=== PATIENT | female | born 1960 | race Caucasian/White ===

== ENCOUNTER → 2021-07-26 | Outpatient (CLI) | payer OTHER, SELFPAY ==
--- NOTE | 2021-07-26 14:00 | FLU_PTH ---
PATIENT: KELLY HOUSER LOC: [facility] U#:[id number] AGE/SX: 60/F ROOM: RE07/26/[address]: Dr. Iain Etienne MD : 1960 BED: DIS: 07/26/2021 SPEC #: [id number] RECD: 07/26/21 15:30 STATUS: DOMITILA REClaude #: [id number] SHARLA: 07/26/21 14:[address]: Iain Etienne DEPT: CYTOLOGY RECD BY: Kathleen Roland ENTERED: 07/27/21 08:06 SP TYPE: Fluid OTHR DR: Dr. Alf Pat MD Tissues: A - Thyroid gland, NOS B - Thyroid gland, NOS C - Thyroid gland, NOS D - Thyroid gland, NOS Procedures: Special Stain Group II Surgery Specimen Level IV Cytospin Fluid Cytology Other HEADER OPERATION: Ultrasound-guided fine needle aspiration bilateral thyroid nodules PRE-OP DIAGNOSIS: Multiple thyroid nodules TISSUE SUBMITTED: A ? Right lower pole thyroid nodule fluid, B ? Right lower pole thyroid nodule x4 smears, C ? Left thyroid nodule fluid, D ? Left thyroid nodule x4 smears DIAGNOSIS CYTOLOGY A. Fine needle aspiration, right lower pole thyroid nodule fluid (cytospin and cell block): Rare atypical follicular cells of undetermined significance (Dalton category III). B. Fine needle aspiration, right lower pole thyroid nodule (smears): Rare atypical follicular cells of undetermined significance (Dalton category III). C. 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 D. 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 AM:meghna 07/28/2021 COMMENT Case has been reviewed in consultation with Dr. Simon who concurs with the above diagnosis. IDC:SJ CYTOLOGY STUDY Slides are reviewed. CYTOLOGY GROSS A - Received is 20 ml of red cloudy fluid labeled with the patient's name and and designated per the requisition as right lower pole thyroid nodule. Submitted for cytology preparation including cell block. B - Received are four smears labeled with the patient's name and designated per the requisition as right lower pole thyroid nodule. Submitted for staining. C - Received is 15 ml of red cloudy fluid labeled with the patient's name and and designated per the requisition as left thyroid nodule. Submitted for cytology preparation including cell block. D - Received are four smears labeled with the patient's name and designated per the requisition as left thyroid. Submitted for staining. / meghna 07/27/2021 TC:? CPT: 51071 x2, 63285 x4
== END | disposition home or self-care (01) ==
PROVIDERS: PCP Family Medicine; Visit Provider Surgery
DX: E04.2 Nontoxic multinodular goiter (principal)
CPT/HCPCS: 88108; 88161; 88305; 88313

== ENCOUNTER 2021-09-01 12:18 | Observation (INO) | payer OTHER, SELFPAY ==
[2021-09-01] VITALS (12 sets, daily range): BP systolic 116–149; BP diastolic 61–100; PULSE 52–69; RESP 14–18; TEMP 36.1–37; O2SAT 94–100; BMI 28.7
--- NOTE | 2021-09-01 | IMM_PTH ---
PATIENT: KELLY HOUSER LOC: [facility] U#:[id number] AGE/SX: 60/F [place] [facility] [place] RE09/01/[address]: Dr. Iain Etienne MD : 1960 BED: 1 DIS: 09/02/2021 SPEC #: [id number] RECD: 09/03/21 10:49 STATUS: DOMITILA HARRINGTON #: [id number] SHARLA: 09/01/21 00:[address]: Iain Etienne DEPT: IMMUNOHISTOCHEMISTRY RECD BY: Lona Quinn ENTERED: 09/03/21 10:51 SP TYPE: IMMUNO OTHR DR: Dr. Alf Pat MD Tissues: B - Thyroid gland, NOS Procedures: HBME (initial) CD56 (add) CK19 (add) GAL-3 (add) HBME (add) PHYSICIAN & INSTITUTION [place] [id number] SPECIMEN INFORMATION: Tissue Source: B ? Thyroid, total thyroidectomy Clinical Info: Multiple thyroid nodules Specimen Number: [id number] B2, B10 & B13 CPT code: 48169, 06314 x11 METHODOLOGY: Deparaffinized sections of prefer/formalin-fixed tissue or PAP/DQ stained slides are incubated with monoclonal/polyclonal antibodies/oligonucleotide probes. Localization is made via biotin free immunoperoxidase method. Appropriate controls are performed and reacted as expected. Results on target cell population are indicated in the following table: RESULTS: ANTIBODY / CLONE RESULT Block B2 HBME1 (HBME-1) negative CK19 (A53-B/A2.26) positive GAL3 (9C4) negative CD56 (123C3.D5) negative Block B10 HBME1 (HBME-1) positive CK19 (A53-B/A2.26) positive GAL3 (9C4) positive CD56 (123C3.D5) negative Block B13 HBME1 (HBME-1) negative CK19 (A53-B/A2.26) positive GAL3 (9C4) negative CD56 (123C3.D5) negative These tests were developed and their performance characteristics determined by [facility]. They may not have been cleared or approved by the U.S. Food and Drug Administration. The FDA has determined that such clearance or approval is not necessary. The above immunohistochemical/dualISH markers are ordered and reviewed by the Pathologist. INTERPRETATION: B. Thyroid, total thyroidectomy: Incidental papillary thyroid carcinoma (block 10). Follicular adenomas (block 2 & 3). SJ:meghna 09/06/2021 Case has been reviewed in consultation with Dr. Acuña who concurs with the above diagnosis. IDC:AM
--- NOTE | 2021-09-01 | THYROID_PTH ---
PATIENT: KELLY HOUSER LOC: [facility] U#:[id number] AGE/SX: 60/F [place] [facility]/01/[address]: Dr. Iain Etienne MD : 1960 BED: 1 DIS: 09/02/2021 SPEC #: [id number] RECD: 09/01/21 10:42 STATUS: DOMITILA HARRINGTON #: [id number] SHARLA: 09/01/21 00:[address]: Iain Etienne DEPT: SURGICAL PATHOLOGY RECD BY: Lona Quinn ENTERED: 09/01/21 12:10 SP TYPE: THYROID OTHR DR: Dr. Alf Pat MD Tissues: A - Parathyroid B - Thyroid gland, NOS Procedures: Frozen Section (charge) Surgery Specimen Level IV Surgery Specimen Level V HEADER OPERATION: Total thyroidectomy with intraoperative nerve monitoring PRE-OP DIAGNOSIS: Multiple thyroid nodules TISSUE SUBMITTED: A ? Right superior parathyroid, FS, B ? Thyroid, stitch [place] right superior pole FROZEN SECTION DIAGNOSIS A. Right superior parathyroid, biopsy: Parathyroid tissue. AM:meghna 09/01/2021 Case has been reviewed in consultation with Dr. Simon who concurs with the above diagnosis. IDC:PAYAM MICROSCOPIC DIAGNOSIS A. Right superior parathyroid, biopsy: Parathyroid tissue with cautery artifact. B. Thyroid, total thyroidectomy: Incidental papillary thyroid carcinoma, follicular variant, left lobe. Follicular adenomas. Chronic lymphocytic thyroiditis. Multinodular goiter. See cancer summary in the comment section. SJ:meghna 09/06/2021 COMMENT B. Immunohistochemistry ([id number]) supports the above diagnosis. THYROID CANCER SUMMARY Procedure: Total Thyroidectomy Tumor focality: Unifocal Tumor Site: left lobe Tumor Size: 0.5 x 0.4 cm (measured microscopically) Histologic Type: incidental papillary carcinoma, follicular variant, encapsulated, with tumor capsular invasion. Margins: Uninvolved by carcinoma. 0.1 cm away from the anterior and posterior margins. Angioinvasion: Not identified Lymphatic Invasion: Not identified Perineural invasion: Not identified Extrathyroidal Extension: Not identified Regional Lymph Nodes: Number of lymph nodes Examined: 4 Number of Lymph nodes involved: 4 out of 4 lymph nodes negative for metastatic carcinoma. Node Levels Involved: Level 6, perithyroidal Distant metastasis: Not applicable Additional Pathologic Findings: - Follicular adenomas, right and left lobes, largest measuring 1.5 cm in greatest dimension and shows Hurthle cell features. - chronic lymphocytic thyroiditis. - Multinodular goiter. - Unremarkable parathyroid tissue, right superior lobe. Ancillary Studies: Please see IHC report ([id number]) Clinical History: Please make reference to previous specimen ([id number]) fine needle aspiration, right lower pole thyroid nodule with rare atypical follicular cells of undetermined significance and fine needle aspiration, left thyroid nodule suspicious for follicular neoplasm with Hurthle cell features. PATHOLOGIC STAGE: pT1a pN0 pMx The above summary is in compliance with [employer] [place] [employer] (CAP) Cancer Protocols Checklist and [place] [employer] Committee on Cancer (AJCC), Staging Manual, 8th Ed. Case has been reviewed in consultation with Dr. Acuña who concurs with the above diagnosis. IDC:AM MICROSCOPIC DESCRIPTION Slides are reviewed. GROSS DESCRIPTION A - Received fresh for frozen section consultation labeled with the patient's name is a specimen designated right superior parathyroid. The specimen consists of a single irregular fragment of pink-cobb soft tissue measuring 0.4 x 0.2 x 0.1 cm. The specimen is totally submitted in one cassette for frozen section consultation. / AM:meghna 09/01/2021 B - Received in fixative is one container labeled with the patient's name and designated thyroid, stitch [place] right superior pole. The specimen consists of a total thyroidectomy specimen weighing 24.7 gm. The specimen is oriented by a suture identifying right superior pole. The lobe without suture, left lobe, measures 5 x 3 x 2 cm and lobe with suture, right lobe, measures 6 x 3 x 2.5 cm and isthmus measures o 2.5 x 0.5 x 0.5 cm. The specimen is inked as follows: anterior surface - black, posterior surface left lobe (without suture) - blue, posterior surface isthmus - yellow and posterior surface lobe with suture, right lobe - green. Sections of the lobe without suture, left lobe, shows a hemorrhagic nodule measuring 1.5 x 1 x 1 cm. Sections of the isthmus do not reveal any mass lesion. Sections of the lobe with suture, right lobe, shows cobb-white, solid, indurated cut surfaces and one ill-defined nodule in the lower portion of the lobe measuring 1.0 x 0.5 x 0.5 cm. The entire specimen is submitted in 22 cassettes as follows: 1 & 2 - isthmus, 3-12 ? left lobe (3 containing most superior portion and 12 containing most inferior portion), 13-22 - right lobe (13 containing most superior portion and 22 containing most inferior portion). / SJ:rg 09/02/2021 TC:0 CPT: 71286, 32216, 94385
--- NOTE | 2021-09-01 06:26 | EKG12_ITS ---
Test Reason : PRE OP Blood Pressure : / mmHG Vent. Rate : 059 BPM Atrial Rate : 059 BPM P-R Int : 168 ms QRS Dur : 074 ms QT Int : 402 ms P-R-T Axes : 064 -13 028 degrees QTc Int : 397 ms Sinus bradycardia Otherwise normal ECG Confirmed by NUPUR ALICEA, GATO ([id number]), supervising editor news reel CHRISTIANO DUGGAN ([id number]) on 09/03/2021 11:50:12 AM Referred By: Iain Etienne Confirmed By:GATO ESPITIA MD
[2021-09-01] MEDS: Lactated Ringers 1,000 ML 15 ML IV ×3 (06:43→13:50)
--- NOTE | 2021-09-01 07:31 | HP.PCM_ITS ---
History and Physical Date of Admission: 09/01/21 Date of Service:? 08/18/21 MR#: [id number] Acct: [id number] Name:KELLY CALL Rep #: [id number] : 1960 ? ? Provider: Dr. Iain Etienne MD Age/Sex:? 60/F ? ? Location: [facility] [place] Status: Signed Intake Intake Visit Reasons:?3WK F/U Thyroid BX Results Chief Complaint: discuss options Restaurant Manager Required: No Is patient in pain?: No Allergies Penicillins Allergy (Intermediate, Verified 08/18/21 12:50) swelling/hives Medications ergocalciferol (vitamin D2) 1,250 mcg (50,000 unit) capsule ea PO 05/20/21 [History Confirmed 08/18/21] levothyroxine 50 mcg tablet 50 mcg PO DAILY #90 tab 05/20/21 [Rx Confirmed 08/18/21] losartan 25 mg tablet tablet PO 05/20/21 [History Confirmed 08/18/21] sertraline 50 mg tablet 25 mg PO? tab 05/20/21 [History Confirmed 08/18/21] triamcinolone acetonide 0.1 % topical ointment 1 applic TOPICAL DAILY PRN? g 05/20/21 [History Confirmed 08/18/21] Is last menstrual period known: No Post menopausal: Yes Patient : No PFSH Medical History?(Updated 08/18/21 @ 16:[address] Iain Etienne MD) Back problem High blood pressure Hypercalcemia Hypothyroidism (acquired) Multinodular goiter Surgical History?(Updated 08/18/21 @ 12:50 by Fina Coreas) H/O tubal ligation S/P thyroid biopsy (~07/2021) Family History? Father Colon cancer Social History? Smoking Status:? Never smoker alcohol intake:? current alcohol intake frequency: a few times a week Alcohol type: wine substance use type:? does not use what type of physical activity do you participate in:? walking frequency:? 3-4 times per week HPI HPI HPI: KELLY HOUSER, is a 60 F who presents to the office today for thyroid nodules.? They are referred for surgical consultation from Dr. Aviles of endocrinology.? Patient's last visit was a biopsy visit on 07/26/2021.? She presents today for review of these FNA biopsy results and discussion of her clinical management options.? She denies any significant interval updates and states that she seems to have healed well following her biopsy aside from some complaint of thickened skin that may represent scar tissue.? She comes with a number of questions and hand regarding her possible options. Below is recapitulated from patient's initial surgical consultation for ease of review: ?This was discovered as part of a work-up a couple of years ago for abnormal thyroid function testing.? Patient received thyroid ultrasounds in 2019 and again in December 2020. They do experience difficulty with swallowing.? They do not complain of a new cough.? They do not appreciate new voice changes.? They do have a longstanding history of snoring but she qualifies this stating that it is the same or less nowadays. Additionally, their weight has been stable and they do not have a history of weight gain/loss.? There is a history of recent fatigue but this has improved si nce increasing the dose of levothyroxine by endocrinology.? While Mrs. Houser does have a history of anxiety, she states this is no worse since starting her increased dose of levothyroxine.? They do not have a history of heat or cold intolerance.? ? Other symptoms include: No change of bowel habits denying neither diarrhea or constipation.? They do have a family history of thyroid disorders or endocrinopathies?which she details as a mother and sister both with diagnoses of hypothyroidism requiring thyroid hormone supplementation.? There is no history of prior radiation exposure. Previous work-up has included thyroid ultrasound on 12/29/2020.? This ultrasound identified 2 significant nodules in the right thyroid lobe and a third significant nodule in the left thyroid lobe.? In the right lower pole there was a 0.7 x 1.1 x 1.2 cm TI-RADS 5 nodule that was considered stable in size by radiology but given the finding of possible extrathyroidal extension, FNA was recommended.? A second right lower pole thyroid nodule measured 0.5 x 0.4 x 0.5 cm and was also rated at a TI-RADS 5.? Given its small size follow-up ultrasound was recommended.? Lastly in the left lobe there was a mid polar 0.9 x 1.1 x 1.4 cm TI-RADS 4 nodule.? Also given its size, follow-up ultrasound was recommended.? An FNA has not been performed.? Other tests include: TSH 3.61 (12/18/2020). Patient notes that they were previously seen by another surgeon and informed they could not reproduce the ultrasound picture as described by radiology in December 2020 and therefore could not proceed with FNA.? However, when they recommended a second opinion outside of the community, patient declined. ROS General General: No weight change, appetite, fatigue, colon cancer, breast cancer or weakness HEENT HEENT: No difficulty swallowing, eye injury, eye surgery, swollen glands or hoarseness Endo Endocrine: No thyroid disease, diabetes mellitus, thyroid cancer, Hair loss, heat intolerance or cold intolerance Skin Skin: No rash or changing moles Breast Breast: No left breast lump, right breast lump, nipple discharge, breast pain, abnormal mammogram, abnormal US or breast enlargement Musc Musculoskeletal: No back problems, arthritis, rheumatoid arthritis, gout or joint pain Cardio Cardiovascular: Yes high blood pressure; No murmur, pacemaker, heart disease, atrial fibrillation, heart attack, heart stent, palpitations, shortness of breat with exertion or chest pain Psych Psychiatric: Yes depression and anxiety; No hearing voices Resp Respiratory: No shortness of breath, No sleep apnea, No cough, No COPD, No asthma, No emphysema and No wheezing Gastro Gastrointestinal: No abdominal pain, No nausea or vomiting, No diarrhea, No constipation, No blood in stool, No acid reflux, No hemorrhoids, No ulcers, No gallbladder problem and No black,tarry stools Roberto Hematologic: No blood thinners, No blood disorders, No bleeding, No anemia and No blood clots Neuro Neurologic: No system reviewed and no additional complaints, except as documented, No as per HPI, No abnormal gait, No abnormal hearing, No abnormal movements, No abnormal speech, No behavioral changes, No burning sensations, No confusion, No convulsions, No disequilibrium, No dizziness, No localized weakness, No frequent falls, No headache(s), No lack of coordination, No loss of vision, No memory loss, No numbness, No other visual disturbances, No radicular pain, No restless legs, No sensory deficit, No syncope, No tingling, No trem or(s), No weakness and No other Exam Const General: cooperative and healthy appearing Neck Other: There is some looseness of the skin just superior to the manubrium but I did not find any nodular densities or tender regions. Assessment and Plan Assessment and Plan (1) Multiple thyroid nodules: ?Status:?Acute ?Comment: This is a 60-year-old female, with subclinical hypothyroidism on levothyroxine, referred for multiple thyroid nodules.? She has a right lower pole thyroid nodule given a TI-RADS 5 rating based on sonographic characteristics by radiology from thyroid ultrasound 12/29/2020 as well as a left TI-RADS 4 nodule that underwent FNA biopsy at last visit and returned consistent with FLUS (BIII) and suspicious for follicular neoplasm (BIV), respectively.? Based on this information I held a in-depth discussion with the patient (to include drawings) detailing the surgical options and recommended total thyroidectomy with intraoperative nerve monitoring.? I explained this would be the patient's best way of avoiding any future biopsies and the usual benefit of potentially avoiding thyroid hormone supplementation was moot given her pre-existing diagnosis of hypothyroidism.? Patient expressed understanding of the surgical r ecommendation and we proceeded with a discussion of the operative risk to include postoperative hypoparathyroidism and recurrent laryngeal nerve injury.? Lastly we discussed postoperative disposition to likely include a single overnight observational stay, but with the possibility of discharge to home depending on the course of the case as well as the time of the day that it concluded. ?Plan - Dr. Iain Etienne MD: ? We will plan for total thyroidectomy with intraoperative nerve monitoring mutually agreed upon date.? Patient to bring personal effects for possible overnight stay. I have re-examined the patient. There are no clinical changes since date of exam. Plan to proceed with total thyroidectomy as discussed above.
[2021-09-01] MEDS: Bupivacaine Mpf 0.5% 30 ML VIAL (12:00)
--- NOTE | 2021-09-01 12:11 | PCM.OPRPT ---
Report of Operation Date of Procedure: 09/01/21 Pre-Operative Diagnosis: 1. Multinodular goiter with compressive symptomology and biopsy results strange atypical cells (right) and suspicion for follicular neoplasm (left) Post-Operative Diagnosis: Same Surgery/Procedure Performed:: 1. Total thyroidectomy with intraoperative nerve monitoring 2. Autotransplantation of parathyroid tissue to right sternothyroid muscle Description of Surgical Findings:: ? Firm thyroid gland is hypervascular in nature ? Bilateral recurrent laryngeal nerves intact with intermittent signal on the right but intact every check on the left ? Grossly visible left inferior parathyroid and well-perfused ? Right superior parathyroid gland adherent to thyroid capsule and could not be removed without devascularization. Gland removed from thyroid and identity confirmed with frozen section Surgeon: Iain Etienne real estate assessor: Elizabet Hu Type of Anesthesia: General/Supplemental Anesthesiologist: Kervin Copeland Specimen's removed: 1. Frozen section?confirm superior parathyroid 2. Total thyroid with right superior pole marked by stitch Drains: None Estimated Blood Loss (mL): 75 Description of Procedure: After appropriate identification in the preoperative holding area, the patient was brought to the operating room where she was positioned supine with arms tucked taking care to pad the ulnar nerve bilaterally. Induction of general endotracheal anesthetic was begun and a NIMS tube was placed under glidescope view to confirm coaptation with the vocal cords anteriorly. Tube was then secured and the patient was positioned with a shoulder roll so that her head was in extension but supported. The Nims electrodes were placed and connected to the monitor. We had appropriate resistance showing on the monitor and tapping at the level of the cricoid produce a graphical representation of the impulse on the monitor. Patient's neck was then prepped and draped in usual sterile fashion and a formal timeout was conducted with those present. The lowest skin fold to the sternal notch was selected for incision site (this resided approximately 1 and half fingerbreadths cephalad to the notch). An incision was extended for 2-1/2 cm on either side of midline. Electrocautery was used to deepen this incision through the level of the platysma. Subplatysmal flaps were raised with the use of electrocautery and blunt dissection. The strap muscles were then divided along the medial raphe bringing us down to the level of the thyroid. Capsular attachments to the thyroid were divided with the use of LigaSure. Retractors were placed providing visualization of the superior pole of the right lobe of the thyroid. Patient had a number of accessory vessels and a higher than usual superior pole. The vessels of the superior pole were sequentially ligated with the use of the LigaSure device. We then moved inferiorly and divided those polar vessels with LigaSure. I was careful to take these vessels right against the thyroid capsule and the left the inferior parathyroid gland was bluntly removed from the thyroid capsule to preserve it intact. With the poles freed the thyroid was mobilized medially by bluntly the remaining strap muscle fibers from the thyroid capsule and using LigaSure to divide the middle thyroid vein. While retracting the thyroid medially, we did see significant posterior extension that required meticulous blunt dissection to avoid inadvertent injury to the recurrent laryngeal nerve. Blunt dissection parallel to the presumed course of the recurrent laryngeal nerve was used to expose the tracheoesophageal groove. Here I encountered a positive signal for the left recurrent laryngeal nerve and was shortly thereafter able to visualize the nerve. The nerve positively identified, I began carefully dissecting off the remaining tracheal attachments around the area of the nerve. A thyroid remnant was established in the area of the ligament of Fischer and this was secured with 4-0 silk ligatures. The specimen side was then sharply amputated. Once the left thyroid lobe was elevated at least 2 to 3 mm anterior to the insertion point, electrocautery was used to remove the isthmus from the anterior surface of the trachea. There did appeared to be a slight pyramidal lobe extension when the isthmus was examined superiorly so this was dissected free of the thyroid cartilage with a combination of electrocautery and blunt dissection. We then moved to removal of the right thyroid lobe with a similar technique taking care to remove the strap muscles from their capsular attachments to the lobe. The superior pole vessels were taken in like fashion with use of LigaSure energy. Shortly after taking the superior pole vessels I encountered what I felt represented the right superior parathyroid gland. This was adherent to the thyroid capsule, anteriorly and it did not seem that I could bluntly dissected away from the capsule and yet still preserve its vascular supply. Therefore it was removed from the thyroid with blunt dissection and a portion of this was submitted to pathology for frozen section to confirm its identity. The inferior pole vessels and middle thyroid vein were then divided with LigaSure as we waited for the pathology result. Pathology did ultimately returned as consistent with parathyroid tissue and this was set aside for autotransplantation later in the case. There was a similar posterior extension of the thyroid gland?but not as significant as that found on the left side. As the thyroid was elevated and medialized, I continued vigilance for the recurrent laryngeal nerve. I eventually was able to get a signal from the nerve monitor that the nerve was close, but admittedly did not clearly visualize it. Palpating the cricothyroid joint I attempted to bluntly dissect the ligament of Fischer anterior to the course of the recurrent laryngeal nerve. A thyroid remnant was established with passage of a silk ligature. Elevating this ligature I again tested the nerve and found a positive signal. However once the ligature was tied down the nerve refused to fire so the tie was then sharply removed and nerve was further dissected out both proximally and distally. I again bluntly dissected the thyroid tissue off the thyroid cartilage and reestablished the thyroid remnant. This time there was a positive signal from the nerve more inferiorly and the silk ligature was tied down and the thyroid tissue was sharply divided. This permitted us a several millimeter margin between the thyroid gland and the course of the nerve so the remainder of the thyroid gland was removed with electrocautery taking care to protect the trachea below. Our final specimen was marked with a 3-0 Vicryl stitch through the right upper pole and passed off the field for pathologic processing. Both surgical cavities were inspected for hemostasis; closer to the nerve there was some additional oozing and Surgicel hemostatic agent was placed bilaterally while pressure was applied. Once this pressure was relieved, the surgical cavity was again inspected and we found hemostasis to be intact. On the left there was a clearly viable left inferior parathyroid gland and the recurrent laryngeal nerve signal was intact. On the right, I was not able to restimulate the recurrent laryngeal nerve, but was suspicious for increased latency given the issues I had with reliability/consistency of the nerve while removing the thyroid. Satisfied with this result, the strap muscles were closed with a running 3-0 Vicryl stitch leaving a small gap at the inferior aspect of the suture line. After the strap muscles were closed, the right superior parathyroid gland was then brought onto the field and was sharply minced into smaller pieces. This volume was halved, and these parathyroid pieces were placed into these pockets of the muscle belly. A small titanium clip was used to seal these pockets closed. The platysmal flaps were closed with interrupted 3-0 Vicryl. Some additional local anesthetic was infiltrated throughout the dermis and the skin was closed in a subcuticular fashion using 4-0 Monocryl. Steri-Strips were applied. Telfa and Tegaderm were used as a dressing. The patient was then awakened from anesthetic without event and was taken to PACU for ongoing recovery. Complications None
[2021-09-01 13:31] LABS: PTHIN 7.7 pg/mL (18.4-80.1)
[2021-09-01] MEDS: 0.9% Normal Saline 1,000 ML 125 ML IV ×2 (14:49→21:21)
[2021-09-01] MEDS: Calcitriol 0.25 MCG Capsule PO (14:50)
[2021-09-01] MEDS: Ibuprofen 400 MG Tablet PO (16:39)
[2021-09-01] MEDS: Calcium Carb/Vitamin D 1 TABLET Tablet PO (16:39)
[2021-09-01] MEDS: Phenol/Sodium Phenolate 180ML 3 SPRAY MUCOUS MEM (19:55)
[2021-09-02 03:28] VITALS: BP 107/70; PULSE 54; RESP 18; TEMP 36.8; O2SAT 98
[2021-09-02] MEDS: 0.9% Normal Saline 1,000 ML 125 ML IV (03:36)
[2021-09-02] MEDS: Levothyroxine 75 MCG Tablet PO (06:40)
[2021-09-02 06:54] LABS: ALB/GLOB Ratio 1.1 RATIO (0.9-2.4); AST(SGOT) 27 U/L (15-37); Alanine Aminotransfer ALT/SGPT 30 U/L (13-56); Albumin, Serum 3.2 g/dL (3.2-5.0); Alkaline Phosphatase 73 U/L (45-117); Anion Gap 4 (5-15); BUN 10 mg/dL (7-18); BUN/Creat Ratio 13.7 RATIO (10-20); Calcium,Total 8.2 mg/dL (8.5-10.1); Chloride 107 mmol/L (98-107); Creatinine, Serum 0.73 mg/dL (0.55-1.02); EST Glomerular Filtration Rate 86 mL/min (>60); Est Glom Filt Rate - Afr Amer 104 mL/min (>60); Globulin 2.8 g/dL (2.2-4.2); Glucose 121 mg/dL (74-106); Magnesium 1.7 mg/dL (1.6-2.6); Sodium Level 139 mmol/L (136-145)
--- NOTE | 2021-09-02 07:16 | DCINST_ITS ---
Discharge Instructions Diet Discharge Diet: Soft diet (Okay to advance to unrestricted once tolerating) Activity Discharge Activity: May Not Drive (While still difficult to turn head from side to side (impairing blindspot checking) OR if taking narcotic pain medications) May shower in (days): 2 Ice area for (Minutes): 20 Dressing / Incision Call your doctor if your incision/area has: Continuous Slow Oozing, Sudden Increased Bleeding, Increased Pain/ Swelling, Increased Redness and Swelling at the incision site Call your doctor if you observe: Fever of 101 or Higher, Numbness or Tingling (of fingertips or lips) and - (Difficulty swallowing) Remove Dressing in: 2 days (Remove outer dressing but leave steri strips in place until they fall off spontaneously) Cleanse incision/area with: Soap & Water (Avoid scrubbing/ submersing) Follow Up Care Please Follow Up With: Iain Etienne MD When: In 1 week for postop check with pre-clinic labs Test Results: Test results from this visit will be discussed in further detail at your follow- up appointment, if applicable. Discharge Plan Admission Admit Date/Time: 09/01/21 12:18 Primary Reason for Your Visit: Multinodular goiter with compressive symptoms and suspicious nodules Attending Provider: Iain Etienne Primary Care Provider: Alf Pat Instructions Patient Instructions: Thyroidectomy Post Op, After Thyroid Surgery Additional Instructions / Restrictions: Please take additional tablet of prescribed calcium or regular strength Tums should you experience numbness or tingling about her fingertips or lips and then notify general surgery office. Discharge Orders/Prescriptions Prescriptions: New calcitriol 0.25 mcg Capsule 0.25 mcg PO DAILY 30 Days Qty: 30 0RF calcium carbonate-vitamin D3 [Oyster Shell Calcium-Vit D3] 500 mg-5 mcg (200 unit) Tablet 1 tab PO TIDCM 30 Days Qty: 90 0RF levothyroxine 137 mcg capsule 137 mcg PO DAILY 35 Days Qty: 35 0RF Continued sertraline 50 mg tablet 25 mg PO DAILY Label Comments: take 1 tablet by mouth once daily ergocalciferol (vitamin D2) 1,250 mcg (50,000 unit) capsule 50,000 unit PO MO Label Comments: take 1 capsule by mouth every week losartan 25 mg tablet 25 mg PO DAILY triamcinolone acetonide 0.1 % ointment 1 applic topical DAILY PRN (Reason: Skin Cleansing) Discontinued levothyroxine 50 mcg tablet 50 mcg PO DAILY Qty: 90 3RF Referrals / Follow Up: Alf Pat MD [Primary Care Provider] - Disposition Disposition (needs filled in before D/C Order can be placed): Home, Self Care
--- NOTE | 2021-09-02 07:16 | PCM.DC.SUM ---
Providers Date of Admission: 09/01/21 Primary Care Physician: Dr. Alf Pat MD Reason For Visit: TOTAL THYROIDECTOMY WITH INTRAOPERATIVE NERVE SHERIDAN Medications at Discharge Home Medications ergocalciferol (vitamin D2) 1,250 mcg (50,000 unit) capsule 50,000 unit PO MO 05/20/21 losartan 25 mg tablet 25 mg PO DAILY 05/20/21 sertraline 50 mg tablet 25 mg PO DAILY 05/20/21 triamcinolone acetonide 0.1 % topical ointment 1 applic topical DAILY PRN Skin Cleansing 05/20/21 calcitriol 0.25 mcg capsule 0.25 mcg PO DAILY 30 days #30 caps 09/02/21 calcium carbonate 500 mg-vitamin D3 5 mcg (200 unit) tablet (Oyster Shell Calcium-Vitamin D3) 1 tab PO TIDCM 30 days #90 tabs 09/02/21 levothyroxine 137 mcg capsule 137 mcg PO DAILY 5 weeks #35 caps 09/02/21 Hospital Course Operations - (Total thyroidectomy) Summary of Care Provided Hospital Course: Patient is a 60-year-old female who initially presented to me as an outpatient for complaints of compressive symptomology and multinodular goiter. Several of her thyroid nodules were sampled with FNA biopsy and were concerning for atypical cells as well as a possible follicular neoplasm. Given her underlying hypothyroidism and the bilaterality of her condition, a total thyroidectomy is recommended. This was undertaken with intraoperative nerve monitoring on 09/01/2021. The proceeded in an uncomplicated fashion aside from need to perform autotransplantation of the right superior parathyroid gland that was natively located so that it could not be salvaged with the thyroidectomy procedure. Patient was admitted to the floor postoperatively for clinical monitoring as well as monitoring of her calcium levels. Given that her PTH was rather low postoperatively, I initiated calcitriol therapy in addition to her calcium carbonate supplementation. Initially patient had a significant difficulty with oral intake given a sore throat, but by this morning, postoperative day 1, patient had significant improvement in this symptom and was no longer experiencing this difficulty. Further she denied any development of paresthesias and her calcium was found to be in the range of normal with an improvement of her parathyroid hormone level. With these general improvements, she is granted discharge to home with a 1 week follow-up in our outpatient clinic. Physical Exam Const alert, oriented x3 and no apparent distress General Appearance: cooperative HEENT HEENT Narrative: Patient's voice clear today Neck Neck Narrative: Cervical incision dressing intact without strikethrough. Periincisional soft tissues remain soft. Appropriately tender with palpation. No evidence of underlying fluctuance Weight / BMI Weight Weight: 167 lb 5.294 oz Body Mass Index (BMI) 28.7 ABG / Lab / Microbiology Data Result Diagrams: 09/02/21 05:46 Laboratory: Laboratory Results - last 24 hr 09/01/21 13:12: PTH Intact 7.7 L 09/02/21 05:46: Sodium 139, Potassium 4.0, Chloride 107, Carbon Dioxide 28.0, Anion Gap 4 L, BUN 10, Creatinine 0.73, Estim Creat Clear Calc 69.00, Est GFR (MDRD) Af Amer 104, Est GFR (MDRD) Non-Af 86, BUN/Creatinine Ratio 13.7, Glucose 121 H, Calcium 8.2 L, Magnesium 1.7, Total Bilirubin 0.50, AST 27, ALT 30, Alkaline Phosphatase 73, Total Protein 6.0 L, Albumin 3.2, Globulin 2.8, Albumin/Globulin Ratio 1.1 Meaningful Use Info Meaningful Use Diagnoses (Choose all that apply): None applicable Discharge Plan Admission Admit Date/Time: 09/01/21 12:18 Primary Reason for Your Visit: Multinodular goiter with compressive symptoms and suspicious nodules Attending Provider: Iain Etienne Primary Care Provider: Alf Pat Instructions Additional Instructions / Restrictions: Please take additional tablet of prescribed calcium or regular strength Tums should you experience numbness or tingling about her fingertips or lips and then notify general surgery office. Discharge Orders/Prescriptions Prescriptions: New calcitriol 0.25 mcg Capsule 0.25 mcg PO DAILY 30 Days Qty: 30 0RF calcium carbonate-vitamin D3 [Oyster Shell Calcium-Vit D3] 500 mg-5 mcg (200 unit) Tablet 1 tab PO TIDCM 30 Days Qty: 90 0RF levothyroxine 137 mcg capsule 137 mcg PO DAILY 35 Days Qty: 35 0RF Continued sertraline 50 mg tablet 25 mg PO DAILY Label Comments: take 1 tablet by mouth once daily ergocalciferol (vitamin D2) 1,250 mcg (50,000 unit) capsule 50,000 unit PO MO Label Comments: take 1 capsule by mouth every week losartan 25 mg tablet 25 mg PO DAILY triamcinolone acetonide 0.1 % ointment 1 applic topical DAILY PRN (Reason: Skin Cleansing) Discontinued levothyroxine 50 mcg tablet 50 mcg PO DAILY Qty: 90 3RF Referrals / Follow Up: Alf Pat MD [Primary Care Provider] - Disposition Disposition (needs filled in before D/C Order can be placed): Home, Self Care Charges/Coding Visit Charges Inpatient E&M: 87278 Disch Hosp
[2021-09-02 07:50] LABS: PTHIN 16.7 pg/mL (18.4-80.1)
[2021-09-02] MEDS: Calcium Carb/Vitamin D 1 TABLET Tablet PO (08:57)
[2021-09-02] MEDS: Calcitriol 0.25 MCG Capsule PO (08:58)
[2021-09-02 09:00] VITALS: BP 121/69; PULSE 60; RESP 17; TEMP 36.7; O2SAT 96
[2021-09-02 11:52] VITALS: BP 137/71; PULSE 86; RESP 17; O2SAT 95
== END 2021-09-02 11:55 | disposition home or self-care (01) ==
LOC: SDC 13:27 → MS3 13:27
PROVIDERS: Admitting Provider Surgery; PCP Family Medicine; Referring Provider Surgery; Visit Provider Surgery
PROC: (CPT 60240; principal; 2021-09-01 07:15)
DX: C73 Malignant neoplasm of thyroid gland (principal); F41.9 Anxiety disorder, unspecified; Z79.899 Other long term (current) drug therapy; E03.9 Hypothyroidism, unspecified; Z79.890 Hormone replacement therapy; I10 Essential (primary) hypertension; E83.52 Hypercalcemia; F32.A Depression, unspecified; R06.02 Shortness of breath; R42 Dizziness and giddiness
CPT/HCPCS: 60240; 60512; 00320; 80053; 83735; 83970; 88305; 88307; 88331; 88341; 88342; 93005; 96360; 96361; 99218; J7030; J7120; G0378; J2405

== ENCOUNTER → 2021-09-08 | Outpatient (CLI) | payer OTHER, SELFPAY ==
[2021-09-08 09:29] LABS: Calcium,Total 9.3 mg/dL (8.5-10.1); Free T3 3.1 pg/mL (2.18-3.98); T4 Total, Thyroxin 15.9 ug/dL (4.8-13.9); Thyroid Stim Hormone (TSH) 0.16 uIU/mL (0.358-3.74)
[2021-09-08 09:30] LABS: PTHIN 34.8 pg/mL (18.4-80.1)
== END | disposition home or self-care (01) ==
LOC: PAVLAB 08:48
PROVIDERS: PCP Family Medicine; Referring Provider Surgery; Visit Provider Surgery
DX: E89.0 Postprocedural hypothyroidism (principal)
CPT/HCPCS: 36415; 82310; 83970; 84436; 84443; 84481

== ENCOUNTER → 2021-09-30 | Outpatient (CLI) | payer OTHER, SELFPAY ==
[2021-09-30 08:47] LABS: Calcium,Total 9.4 mg/dL (8.5-10.1); Free T3 3.2 pg/mL (2.18-3.98); T4 Total, Thyroxin 15.3 ug/dL (4.8-13.9); Thyroid Stim Hormone (TSH) 0.01 uIU/mL (0.358-3.74)
== END | disposition home or self-care (01) ==
LOC: PAVLAB 08:01
PROVIDERS: PCP Family Medicine; Referring Provider Surgery; Visit Provider Surgery
DX: E89.0 Postprocedural hypothyroidism (principal)
CPT/HCPCS: 36415; 82310; 84436; 84443; 84481

== ENCOUNTER → 2021-10-18 | Outpatient (CLI) | payer OTHER, SELFPAY ==
[2021-10-18 08:22] LABS: Calcium,Total 9.3 mg/dL (8.5-10.1)
[2021-10-18 08:28] LABS: PTHIN 37.1 pg/mL (18.4-80.1)
== END | disposition home or self-care (01) ==
LOC: PAVLAB 07:48
PROVIDERS: PCP Family Medicine; Visit Provider Surgery
DX: E03.9 Hypothyroidism, unspecified (principal)
CPT/HCPCS: 36415; 82310; 83970

== ENCOUNTER → 2021-12-16 | Outpatient (CLI) | payer OTHER, SELFPAY ==
[2021-12-16 08:54] LABS: Calcium,Total 9.3 mg/dL (8.5-10.1); T4 Free Direct 1.54 ng/dL (0.76-1.46); Thyroid Stim Hormone (TSH) 0.13 uIU/mL (0.358-3.74)
[2021-12-16 09:05] LABS: Vitamin D,25 Hydroxy 71.5 ng/mL
[2021-12-18 10:27] LABS: Anti-Thyroglobulin AB < 1.0 IU/mL (0.0-0.9); Thyroglobulin, Serum Qt. < 0.1 ng/mL (1.5-38.5)
== END | disposition home or self-care (01) ==
LOC: PAVLAB 08:09
PROVIDERS: PCP Family Medicine; Referring Provider Internal Medicine Endocrinology, Diabetes & Metabolism; Visit Provider Internal Medicine Endocrinology, Diabetes & Metabolism
DX: E03.9 Hypothyroidism, unspecified (principal); C73 Malignant neoplasm of thyroid gland; E55.9 Vitamin D deficiency, unspecified
CPT/HCPCS: 36415; 82306; 82310; 84432; 84439; 84443; 86800

== ENCOUNTER → 2021-12-27 | Outpatient (CLI) | payer OTHER, SELFPAY ==
--- NOTE | 2021-12-27 08:02 | EKG12_ITS ---
Test Reason : PREOP Blood Pressure : / mmHG Vent. Rate : 086 BPM Atrial Rate : 086 BPM P-R Int : 146 ms QRS Dur : 066 ms QT Int : 346 ms P-R-T Axes : 021 -23 051 degrees QTc Int : 414 ms Normal sinus rhythm Poor R wave progression Confirmed by NUPUR ALICEA, GATO ([id number]), scientific publications editor CHRISTIANO DUGGAN ([id number]) on 12/28/2021 10:58:35 AM Referred By: Byron Wilson Confirmed By:GATO ESPITIA MD
[2021-12-27 08:30] LABS: Hematocrit 43.8 % (37-47); Hemoglobin 14.6 g/dL (12.0-15.0); Mean Corp Hgb Conc 33.3 g/dL (32-36); Mean Corpuscular Hgb 30.2 pg (27.0-32.0); Mean Corpuscular Volume 90.5 fL (81-99); Mean Platelet Vol. 10.3 fl (6.2-12.0); Platelet Count 256 K/mm3 (150-450); RBC Distribution Width SD 42.6 fl (35.1-43.9); Red Blood Count 4.84 M/mm3 (4.2-5.4); White Blood Count 5.3 K/mm3 (4.4-11.0)
[2021-12-27 08:50] LABS: Anion Gap 5 (5-15); BUN 14 mg/dL (7-18); BUN/Creat Ratio 17.2 RATIO (10-20); Calcium,Total 8.9 mg/dL (8.5-10.1); Chloride 106 mmol/L (98-107); Creatinine, Serum 0.81 mg/dL (0.55-1.02); EST Glomerular Filtration Rate 75 mL/min (>60); Est Glom Filt Rate - Afr Amer 91 mL/min (>60); Glucose 68 mg/dL (74-106); Potassium 4.1 mmol/L (3.5-5.1); Sodium Level 142 mmol/L (136-145)
== END | disposition home or self-care (01) ==
PROVIDERS: PCP Family Medicine; Referring Provider Otolaryngology; Visit Provider Otolaryngology
DX: Z01.818 Encounter for other preprocedural examination (principal); K13.0 Diseases of lips
CPT/HCPCS: 36415; 80048; 85027; 93005

== ENCOUNTER → 2022-01-25 | Outpatient (CLI) | payer OTHER, SELFPAY ==
--- NOTE | 2022-01-25 07:57 | RAD_ITS ---
STUDY: X-RAY - ESOPHAGUS (BARIUM SWALLOW) WITH FLUOROSCOPY REASON FOR EXAM: Female, 61 years old. DYSPHAGIA TECHNIQUE: 15 view(s) of the esophagus were obtained following swallowing of barium. FLUOROSCOPY TIME (if supplied): (40 seconds) minutes/seconds COMPARISON: None. FINDINGS: There is no demonstrated esophageal foreign body. There is no demonstrated stricture or mucosal abnormality. Normal gastroesophageal junction, without a demonstrated hiatal hernia. The patient ingested a 12 mm tablet of barium without any difficulty. Normal visualized aortic arch and descending thoracic aorta. Normal visualized pulmonary parenchyma. Normal visualized osseous structures of the thorax. RAD/Esophagus Dual Contrast IMPRESSION: Normal plain film x-ray examination (barium swallow) of the esophagus. Electronically Signed: Gume Pedroza MD at 9:49 EST ,
== END | disposition home or self-care (01) ==
PROVIDERS: PCP Family Medicine; Referring Provider Family Medicine; Visit Provider Family Medicine
DX: R13.10 Dysphagia, unspecified (principal)
CPT/HCPCS: 74221

== ENCOUNTER → 2022-03-03 | Outpatient (CLI) | payer OTHER, SELFPAY ==
[2022-03-03 10:45] LABS: T4 Free Direct 1.26 ng/dL (0.76-1.46); Thyroid Stim Hormone (TSH) 3.67 uIU/mL (0.358-3.74)
== END | disposition home or self-care (01) ==
LOC: PAVLAB 09:50
PROVIDERS: PCP Family Medicine; Referring Provider Internal Medicine Endocrinology, Diabetes & Metabolism; Visit Provider Internal Medicine Endocrinology, Diabetes & Metabolism
DX: E03.9 Hypothyroidism, unspecified (principal)
CPT/HCPCS: 36415; 84439; 84443

== ENCOUNTER → 2022-11-10 | Outpatient (CLI) | payer OTHER, SELFPAY ==
--- NOTE | 2022-11-10 14:17 | US_ITS ---
INDICATION: thyroid cancer EXAMINATION: US Thyroid (eg thyroid, parathyroid, parotid) TECHNIQUE: Strong scale and color doppler imaging was performed of the thyroid bed. COMPARISON: None. FINDINGS: Status post total thyroidectomy. No suspicious mass or fluid collection seen in the thyroid bed. No suspicious cervical lymph nodes. US/Thyroid IMPRESSION: No evidence of residual or recurrent disease. Electronically Signed: Jose Paul MD at 23:38 EDT ,
== END | disposition home or self-care (01) ==
PROVIDERS: PCP Family Medicine; Referring Provider Physician Assistant; Visit Provider Physician Assistant
DX: C73 Malignant neoplasm of thyroid gland (principal)
CPT/HCPCS: 76536

== ENCOUNTER → 2023-11-14 | Outpatient (CLI) | payer MEDICARE, SELFPAY ==
--- NOTE | 2023-11-14 14:22 | US_ITS ---
STUDY: THYROID ULTRASOUND REASON FOR EXAM: Female, 63 years old. yearly TECHNIQUE: Ultrasound evaluation of the thyroid was performed with real-time and static panchal-scale imaging. COMPARISON: 11/10/2022 FINDINGS: Status post thyroidectomy with no residual thyroid tissue identified.. The regional lymph nodes are normal. US/Thyroid IMPRESSION: Normal ultrasound of the neck after thyroidectomy. Electronically Signed: Gus Saldivar MD at 12:06 EDT ,
[2023-11-16 18:08] LABS: Anti-Thyroglobulin AB < 1.0 IU/mL (0.0-0.9); Thyroglobulin, Serum Qt. 0.1 ng/mL (1.5-38.5)
== END | disposition home or self-care (01) ==
LOC: US 14:18
PROVIDERS: PCP Family Medicine; Referring Provider Surgery; Visit Provider Surgery
DX: C73 Malignant neoplasm of thyroid gland (principal); E89.2 Postprocedural hypoparathyroidism; E89.0 Postprocedural hypothyroidism
CPT/HCPCS: 36415; 76536; 84432; 86800